=== PATIENT | male | born 1960 | race American Indian/Alaskan Native ===

== ENCOUNTER 2023-12-09 13:30 | Outpatient (CLI) | payer OTHER | END 2023-12-09 13:48 | disposition home or self-care (01) | LOC: TOM 13:30 | PROVIDERS: ATTEND Internal Medicine Gastroenterology | DX: F17.210 Nicotine dependence, cigarettes, uncomplicated (principal) ==

== ENCOUNTER → 2024-04-16 | Outpatient (CLI) | payer OTHER | END | disposition home or self-care (01) | LOC: MRI 13:26 | DX: M48.061 Spinal stenosis, lumbar region without neurogenic claudication (principal) | CPT/HCPCS: 72148 ==

== ENCOUNTER 2024-05-12 13:10 | Outpatient (CLI) | payer OTHER | END 2024-05-12 13:21 | disposition home or self-care (01) | LOC: SONOGRAMA 13:10 | PROVIDERS: ATTEND Urology | DX: N40.0 Benign prostatic hyperplasia without lower urinary tract symptoms (principal); R31.1 Benign essential microscopic hematuria; R33.9 Retention of urine, unspecified ==

== ENCOUNTER 2024-11-23 14:24 | Outpatient (CLI) | payer OTHER | END 2024-11-23 14:27 | disposition home or self-care (01) | LOC: TOM 14:24 | DX: J44.9 Chronic obstructive pulmonary disease, unspecified (principal) ==